=== PATIENT | female | born 1995 | race Caucasian/White ===

== ENCOUNTER 2025-07-04 11:24 | Outpatient (REF) | payer BC, SELFPAY ==
--- NOTE | 2025-07-04 14:20 | PAPFT_PTH ---
PATIENT: Lisette Wilkins LOC: [facility], [facility] U#:[id number] AGE/SX: 29/F ROOM: RE07/04/[address]: MACIEL: 1995 BED: DIS: 07/04/2025 SPEC #: [id number] RECD: 07/05/25 12:59 STATUS: JOSE CORTEZ #: [id number] JUHI: 07/04/25 14:[address]: Fiona Padilla DEPT: [facility] Cytology RECD BY: Jayda Farris ENTERED: 07/05/25 12:59 SP TYPE: PAPFT OTHR DR: Unknown,Unknown Tissues: 1 - CX/ENDOCX FOR PAP SMEARS Procedures: PAP THIN PREP/[facility] Screening Comments: [id number] (UNSATISFACTORY FOR EVALUATION) (CHLAMYDIA/GC)
[2025-07-08 11:53] LABS: Chlamydia Result Negative (Negative); GC Result Negative (Negative)
== END 2025-07-04 11:25 | disposition home or self-care (01) ==
LOC: NCHCN 11:24
PROVIDERS: Visit Provider Family Medicine
DX: Z12.4 Encounter for screening for malignant neoplasm of cervix (principal)
CPT/HCPCS: 87491; 87591; 88142

== ENCOUNTER 2025-07-29 11:53 | Outpatient (REF) | payer BC, SELFPAY ==
--- NOTE | 2025-07-29 14:18 | PAPFT_PTH ---
PATIENT: Lisette Wilkins LOC: [facility] U#:[id number] AGE/SX: 29/F ROOM: RE07/29/[address]: Aneta Vazquez : 1995 BED: DIS: 07/29/2025 SPEC #: [id number] RECD: 07/30/25 12:39 STATUS: JOSE REKyle #: [id number] JUHI: 07/29/25 14:[address]: Aneta Brown DEPT: [facility] INCLUDES THE [facility] Cytology RECD BY: Jayda Farris ENTERED: 07/30/25 12:40 SP TYPE: PAPFT CRISTHIAN DR: Unknown,Unknown Tissues: 1 - CX/ENDOCX FOR PAP SMEARS Procedures: PAP THIN PREP/[facility] Screening HPV DNA PROBE Comments: [id number] (HPV 16 & 18/45)
== END 2025-07-29 11:54 | disposition home or self-care (01) ==
LOC: NCHCN 11:53
PROVIDERS: Visit Provider Nurse Practitioner Family
DX: Z12.4 Encounter for screening for malignant neoplasm of cervix (principal)
CPT/HCPCS: 88142; 87624